=== PATIENT | male | born 1990 | race African-American/Black ===

== ENCOUNTER 2024-06-26 17:15 | Emergency (ER) | payer OTHER ==
[~2024-06-26] VITALS: Ht 190.5 cm; Wt 70.0 kg
[2024-06-26 17:20] VITALS: O2SAT 100
[2024-06-26 18:00] LABS: BASOPHILS % 0.6 % (0.0-2.0); EOSINOPHILS % 0.5 % (0.0-5.0); HEMATOCRIT. 32.6 % (42.0-52.0); HEMOGLOBIN. 10.5 g/dL (14.0-18.0); LYMPHOCYTES % 8.5 % (20.0-50.0); MEAN CORPUSCULAR HEMOGLOBIN 27.6 pg (28.0-32.0); MEAN CORPUSCULAR HGB CONC 32.3 g/dL (31.0-37.0); MEAN CORPUSCULAR VOLUME 85.5 fL (80.0-94.0); MEAN PLATELET VOLUME 8.6 fl (7.4-10.4); NEUTROPHILS % 84.4 % (40.0-76.0); PLATELET 411 x1000/uL (130-400); RED BLOOD CELL COUNT 3.81 mill/uL (4.7-6.1); RED CELL DISTRIBUTION WIDTH 15.2 % (11.6-14.6); WHITE BLOOD COUNT 19.6 x1000/uL (4.5-11.0)
[2024-06-26 18:10] LABS: CHLORIDE 98 mEq/L (98-107); POTASSIUM 3.4 mEq/L (3.5-5.1); SODIUM 131 mEq/L (136-145)
[2024-06-26 18:11] LABS: CARBON DIOXIDE 22 mEq/L (21-32)
[2024-06-26 18:12] LABS: CALCIUM 9.2 mg/dL (8.7-10.4)
[2024-06-26 18:16] LABS: CREATININE 0.4 mg/dL (0.6-1.3); GLUCOSE 95 mg/dL (70-105)
[2024-06-26 18:17] LABS: UREA NITROGEN BLOOD 7 mg/dL (9-23)
[2024-06-26 18:18] LABS: ALANINE AMINOTRANSFERASE < 7 IU/L (10-49); ALBUMIN 3.6 g/dL (3.2-4.8)
[2024-06-26 18:19] LABS: BILIRUBIN TOTAL 0.7 mg/dL (0.1-1.0); PROTEIN TOTAL 8.8 g/dL (6.0-8.3)
[2024-06-26 18:20] LABS: ASPARTATE AMINOTRANSFERASE < 8 IU/L (<34)
[2024-06-26] MEDS: ACETAMINOPHEN 325MG TABLET PO STA (19:50)
[2024-06-26] MEDS: SODIUM CHLORIDE 0.9% (SEPSIS BOLUS) IV ONE (19:51)
[2024-06-26] MEDS: PIPERACILLIN/TAZO 3.375G/50ML 50 ML IV ONE (20:06)
[2024-06-26] MEDS: MORPHINE SULFATE 4 MG/ML INJ (FOR IV/IM USE) IV ONE (20:22)
[2024-06-26 20:39] LABS: TROPONIN I HIGH SENSITIVITY < 4 ng/L (3.0-53)
[2024-06-26] MEDS: VANCOMYCIN 1G PREMIX 200 ML IV ONE (20:50)
[2024-06-26 21:20] LABS: ALANINE AMINOTRANSFERASE < 7 IU/L (10-49); ALBUMIN 3.7 g/dL (3.2-4.8); BILIRUBIN DIRECT 0.3 mg/dL (<=3.0); BILIRUBIN TOTAL 0.9 mg/dL (0.1-1.0)
[2024-06-26 21:28] LABS: ASPARTATE AMINOTRANSFERASE < 8 IU/L (<34)
[2024-06-26 23:40] VITALS: BP 122/66; PULSE 65; RESP 10; TEMP 36.8; O2SAT 98
[2024-06-26] MEDS ORDERED: NA PHOS,M-B/NA PHOS,DI-BA ENEMA 118ML PR PRN (23:45)
[2024-06-26] MEDS ORDERED: GUAIFENESIN 200MG/10ML SUGAR FREE UDC PO PRN (23:45)
[2024-06-26] MEDS ORDERED: MAGNESIUM/ALUMINUM HYDROXIDE/SIMETHICONE 30ML UDC PO PRN (23:45)
[2024-06-26] MEDS ORDERED: DOCUSATE SODIUM 100MG CAPSULE PO PRN (23:45)
[2024-06-26] MEDS ORDERED: IPRATROPIUM/ALBUTEROL 0.5-3(2.5)MG/3ML NEB HHN PRN (23:45)
[2024-06-26] MEDS ORDERED: HYDROCODONE/ACETAMINOPHEN 5/325MG TABLET PO PRN (23:45)
[2024-06-26] MEDS ORDERED: CLONIDINE 0.1MG TABLET PO PRN (23:45)
[2024-06-26] MEDS ORDERED: ACETAMINOPHEN 325MG TABLET PO PRN ×2 (23:45)
[2024-06-26] MEDS ORDERED: ONDANSETRON HCL 4MG/2ML INJ IV PRN (23:45)
[2024-06-27] MEDS: SODIUM CHLORIDE 0.9% 1,000 ML IV SCH (00:05)
[2024-06-27 00:45] LABS: IRON 26 ug/dL (65-175)
[2024-06-27 00:48] LABS: PHOSPHORUS 2.4 mg/dL (2.5-4.9); TOTAL IRON BINDING CAPACITY 651 ug/dl (250-425)
[2024-06-27 00:52] LABS: FERRITIN 991 ng/mL (22-322); FOLIC ACID (FOLATE) SERUM 7.18 ng/mL (>5.38); VITAMIN B12 SERUM 320 pg/mL (211-911)
[2024-06-27] MEDS ORDERED: VANCOMYCIN 1GM/200ML PMX (BAXTER) IV SCH (04:00)
[2024-06-27] MEDS ORDERED: PIPERACILLIN/TAZO 3.375G/50ML 50 ML IV SCH (06:00)
[2024-06-27 08:56] LABS: *AMPHETAMINES SCREEN URINE NEGATIVE (NEGATIVE); *BARBITURATES SCREEN URINE NEGATIVE (NEGATIVE); *BENZODIAZEPINES SCREEN URINE NEGATIVE (NEGATIVE); METHADONE URINE SCREEN NEGATIVE (NEGATIVE)
[2024-06-27 08:57] LABS: CANNABINOID URINE SCREEN PRESUMPTIVE POSITIVE (NEGATIVE); ECSTASY MDMA SCREEN URINE NEGATIVE (NEGATIVE); OPIATES URINE SCREEN NEGATIVE (NEGATIVE); PHENCYCLIDINE URINE SCREEN NEGATIVE (NEGATIVE)
[2024-06-27 09:08] LABS: *COCAINE SCREEN URINE NEGATIVE (NEGATIVE)
== END 2024-06-27 02:20 | disposition short-term general hospital (02) ==
LOC: ER 17:15
DX: A41.9 Sepsis, unspecified organism (principal); E11.9 Type 2 diabetes mellitus without complications; Z98.890 Other specified postprocedural states; Z79.899 Other long term (current) drug therapy
CPT/HCPCS: 80053; 80305; 82607; 82728; 82746; 83036; 83540; 83550; 83605; 83690; 83735; 84100; 85025; 85044; 87040; 87086; 87186; 84484; 87077; 36415; 84145; 93005; 96367; 96365; 96375; 99291; 96361; J2543; J3370; J2270; J7030; Z7610 ×3; 80076